=== PATIENT | female | born 1995 | race American Indian/Alaskan Native ===

== ENCOUNTER 2019-09-07 19:00 | Emergency (ER) | payer SELFPAY ==
[2019-09-07 19:23] VITALS: BP 111/47
--- NOTE | 2019-09-07 19:31 | Emergency Department Report ---
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 Due to findings the following was ordered: ED Disposition for MSE Clinical Impression: Needle stick injury of finger of left hand Disposition: DC-01 TO HOME OR SELFCARE Is pt being admited?: No Does the pt Need Aspirin: No Condition: Stable Instructions: Needle Stick Injuries (ED) Additional Instructions: Follow up with the health department for STD screening get retested in 3 months and 6 months from today follow up with pcp Forms: Work/School Release Form(ED)
[2019-09-07 20:32] LABS: Hematocrit 36.2 % (30.3-42.9); Hemoglobin 12.1 gm/dl (10.1-14.3); Mean Corpuscular HGB Conc 34 % (30-34); Mean Corpuscular Volume 93 fl (79-97); Red Blood Count 3.89 M/mm3 (3.65-5.03); Red Cell Distribution Width 13.8 % (13.2-15.2)
[2019-09-07 20:34] LABS: Platelet Count 172 K/mm3 (140-440)
[2019-09-07 20:43] LABS: BUN/Creatinine Ratio 7; Blood Urea Nitrogen 7 mg/dL (7-17); Calcium 9.4 mg/dL (8.4-10.2); Hemolysis Index 213
[2019-09-07 20:48] LABS: Bilirubin,Direct < 0.2 mg/dL (0-0.2)
[2019-09-07 20:49] LABS: Alanine Aminotransferase 11 units/L (7-56)
[2019-09-12 13:25] LABS: HIV-1 Antibody Differentiation SEE SCANNED RESULT; HIV-2 Antibody Differentiation SEE SCANNED RESULT
== END 2019-09-07 22:36 | disposition home or self-care (01) ==
LOC: ED 19:00
DX: S61.432A Puncture wound without foreign body of left hand, initial encounter (principal); W46.1XXA Contact with contaminated hypodermic needle, initial encounter; Y93.89 Activity, other specified; Y92.89 Other specified places as the place of occurrence of the external cause; Y99.8 Other external cause status
CPT/HCPCS: 36415; 80053; 80076; 85025; 86689; 99283